=== PATIENT | male | born 1995 | race African-American/Black ===

== ENCOUNTER 2021-02-05 18:44 | Emergency (ER) | payer OTHER ==
[~2021-02-05] VITALS: Ht 177.8 cm; Wt 113.0 kg
[2021-02-05 22:35] VITALS: BP 134/85
[2021-02-05] MEDS ORDERED: ACETAMINOPHEN 500 MG TABLET PO ONE (23:30)
--- NOTE | 2021-02-06 02:10 | PHYS DOC ---
Past Medical History Additional Past Medical Histor: AUTISM Past Surgical History: No Surgical History Smoking Status: Never Smoker Alcohol Use: None General Adult EDM: Chief Complaint: MULTIPLE COMPLAINTS HPI: HPI: Patient is a 25 year old male with past medical history of autism who presents with cough and fever. This is in the setting of his father testing positive for Covid recently. He has had fevers as high as 102 F. He has not had any Tylenol or ibuprofen prior to arrival. He denies any chest pain or shortness of breath. No sore throat. Is eating and drinking well. Review of Systems: Review of Systems: Constitutional: +fever and chills. [] Eyes: Denies change in visual acuity. [] HENT: Denies nasal congestion or sore throat. [] Respiratory: + cough. No shortness of breath. [] Cardiovascular: Denies chest pain or edema. [] GI: Denies abdominal pain, nausea, vomiting, bloody stools or diarrhea. [] : Denies dysuria. [] Musculoskeletal: Denies back pain or joint pain. [] Integument: Denies rash. [] Neurologic: Denies headache, focal weakness or sensory changes. [] Endocrine: Denies polyuria or polydipsia. [] Lymphatic: Denies swollen glands. [] Psychiatric: Denies depression or anxiety. [] Heart Score: C/O Chest Pain: No Risk Factors: Risk Factors: DM, Current or recent (<one month) smoker, HTN, HLP, family history of CAD, obesity. Risk Scores: Score 0 - 3: 2.5% MACE over next 6 weeks - Discharge Home Score 4 - 6: 20.3% MACE over next 6 weeks - Admit for Clinical Observation Score 7 - 10: 72.7% MACE over next 6 weeks - Early Invasive Strategies Family History: Family History: Mother and father tested positive for Covid. Current Medications: Current Medications Medications (Trade) Dose Ordered Sig/Clarke Start Time Stop Time Status Last Admin Dose Admin Acetaminophen (Tylenol) 1,000 mg 1X ONCE 02/05/21 23:30 02/05/21 23:31 DC 02/05/21 23:56 1,000 MG Allergies: Allergies: Allergies Coded Allergies Type Severity Reaction Last Updated Verified No Known Drug Allergies 02/05/21 No Physical Exam: PE: Constitutional: Mildly diaphoretic. Well developed, well nourished, no acute distress, non-toxic appearance. [] HENT: Normocephalic, atraumatic, bilateral external ears normal, oropharynx moist, no oral exudates, nose normal. [] Eyes: PERRLA, EOMI, conjunctiva normal, no discharge. [] Neck: Normal range of motion, no tenderness, supple, no stridor. [] Cardiovascular: Mild tachycardia. regular rhythm, no murmur [] Lungs & Thorax: Lungs are clear. Normal work of breathing. Bilateral breath so unds clear to auscultation [] Abdomen: Bowel sounds normal, soft, no tenderness, no masses, no pulsatile ma sses. [] Skin: Warm, dry, no erythema, no rash. [] Back: No tenderness, no CVA tenderness. [] Extremities: No tenderness, no cyanosis, no clubbing, ROM intact, no edema. [] Neurologic: Alert and oriented X 3, normal motor function, normal sensory function, no focal deficits noted. [] Psychologic: Affect normal, judgement normal, mood normal. [] Current Patient Data: Labs: Laboratory Tests Test 02/05/21 23:58 SARS-CoV-2 Antigen (Rapid) Positive (NEGATIVE) *A Vital Signs: Vital Signs Date Time Temp Pulse Resp B/P (MAP) Pulse Ox O2 Delivery O2 Flow Rate FiO2 02/06/21 01:00 99.5 99.5 02/05/21 22:35 125 134/85 98 Room Air EKG: EKG: NA [] Radiology/Procedures: Radiology/Procedures: NA [] Course & Med Decision Making: Course & Med Decision Making Pertinent Labs and Imaging studies reviewed. (See chart for details) Patient is a 25-year-old male with a past medical history of autism who presents with cough and fever in the setting of household contacts positive for Covid. His rapid Covid swab was positive here. Initially was febrile, but broke with antipyretics. Initial heart rate 120s, this is improved on my physical exam. He denies any chest pain or shortness of breath. SPO2 was normal. His lung sounds are clear. Do not feel that he requires a chest x-ray. Not feel that he requires IV fluid rehydration, or any further work-up as his symptoms are very easily explained by his viral infection. Discussed return precautions with the patient as well as his mother, that he should return to the emergency department if he has any shortness of breath or chest pain. Dragon Disclaimer: Dragon Disclaimer: This electronic medical record was generated, in whole or in part, using a voice recognition dictation system. Departure Departure Impression: Primary Impression: COVID-19 Disposition: HOME / SELF CARE / HOMELESS Condition: STABLE Referrals: UNKNOWN PCP NAME (PCP) Please follow-up with your primary care doctor. Additional Instructions: You tested positive for COVID-19. You will need to self isolate. Please wear a mask anyway ago. Do not leave the house unless absolutely necessary. Please stay away from others who are not Covid positive. You will need to stay in isolation until at least 10 days of past since your diagnosis and you are feeling better and have no fever for at least 3 days. If you develop chest pain or shortness of breath please return to the emergency department for reevaluation. Otherwise please follow-up with your primary care doctor as you start to improve. ENZO MORRIS MD Feb 06, 2021 02:10
== END 2021-02-06 02:30 | disposition home or self-care (01) ==
LOC: ER 18:44
DX: U07.1 COVID-19 (principal)
CPT/HCPCS: 87426; 99283; U0003; U0005